=== PATIENT | female | born 1960 | race Caucasian/White ===

== ENCOUNTER 2018-06-29 10:09 | Day surgery (SDC) | payer OTHER, BC ==
[2018-06-27 12:27] VITALS: BMI 27.3
[2018-06-29] MEDS ORDERED: MIDAZOLAM HCL 2 MG/2 ML SINGLE DOSE VIAL ONE (11:56)
[2018-06-29] MEDS ORDERED: PROPOFOL 20 ML ONE (11:56)
[2018-06-29] MEDS ORDERED: GUM MASTIC/STORAX/MSAL/ALCOHOL 1 DRP DROPSBTL MC ONE (12:00)
[2018-06-29] MEDS ORDERED: BUPIVACAINE HCL/PF 2.5 MG/ML - 30 ML VIAL IJ ONE (12:00)
[2018-06-29] MEDS ORDERED: PROMETHAZINE HCL 25 MG/1 ML VIAL IVPUSH PRN (15:07)
[2018-06-29] MEDS ORDERED: ONDANSETRON 4 MG/2 ML VIAL IVPUSH PRN (15:07)
[2018-06-29] MEDS ORDERED: oxyCODONE HCL 5 MG TABLET PO PRN ×2 (15:07)
[2018-06-29 15:29] VITALS: BP 124/72; PULSE 68
[2018-06-29 15:50] VITALS: TEMP 97.8
--- NOTE | 2018-06-30 15:33 | OP ---
DATE OF OPERATION: 06/29/2018 PREOPERATIVE DIAGNOSIS: Right carpal tunnel syndrome. POSTOPERATIVE DIAGNOSIS: Right carpal tunnel syndrome. OPERATIVE PROCEDURE: Right endoscopic carpal tunnel release. ANESTHESIA: General. COMPLICATIONS: None. ESTIMATED BLOOD LOSS: Minimal. INDICATION FOR PROCEDURE: The patient is a 57-year-old female with the above findings indicated for operative treatment. Risks, benefits and alternatives were discussed with the patient at length and proper informed consent was obtained. PROCEDURE: After proper identification of the patient and correct operative site the patient was brought to the operating room and placed supine on the operating table. All bony prominences were well padded. Superficial landmarks were drawn on the skin well-padded tourniquet Esmarch bandage right upper extremity. The tourniquet was inflated to 250 mmHg. Transverse incision was made over the proximal wrist crease. This was ulnar to the palmaris longus tendon. Antebrachial fascia was divided and the carpal canal was entered. . The blade was then deployed and the ligament was divided. Under approach the distal 4 cm of the antebrachial fascia were also divided longitudinally. This provided complete release of the median nerve at the wrist. The wound was irrigated and repaired with 4-0 Monocryl suture. Steri-Strips, sterile dressing were placed. Patient was reversed from anesthesia and brought to the recovery room in stable condition. DANI ROGERS M.D. [id number]
== END 2018-06-29 15:50 | disposition home or self-care (01) ==
LOC: FASU 10:09
PROVIDERS: ATTEND Orthopaedic Surgery Hand Surgery
PROC: 01N54ZZ Release Median Nerve, Percutaneous Endoscopic Approach (ICD-10-PCS; principal; 2018-06-29 13:44)
DX: G56.01 Carpal tunnel syndrome, right upper limb (principal)
CPT/HCPCS: 94760

== ENCOUNTER 2018-07-27 07:48 | Day surgery (SDC) | payer OTHER, BC ==
[2018-07-19 12:13] VITALS: BMI 27.3
[2018-07-27] MEDS ORDERED: PROPOFOL 20 ML ONE (09:28)
[2018-07-27] MEDS ORDERED: MIDAZOLAM HCL 2 MG/2 ML SINGLE DOSE VIAL ONE (09:28)
[2018-07-27] MEDS ORDERED: LIDOCAINE HCL/PF 2% SDV 5ML VIAL ONE (09:49)
[2018-07-27] MEDS ORDERED: BUPIVACAINE HCL/PF 0.25% (2.5MG/ML) 10 ML VIAL IJ ONE (10:13)
[2018-07-27] MEDS ORDERED: ONDANSETRON 4 MG/2 ML VIAL IVPUSH PRN (10:35)
[2018-07-27] MEDS ORDERED: oxyCODONE HCL 5 MG TABLET PO PRN (10:35)
[2018-07-27] MEDS ORDERED: LACTATED RINGERS SOLUTION 1,000 ML IV SCH (10:45)
[2018-07-27 10:47] VITALS: TEMP 97.5
[2018-07-27 11:53] VITALS: BP 110/70; PULSE 69
--- NOTE | 2018-07-28 11:32 | OP ---
DATE OF OPERATION: 07/27/2018 PREOPERATIVE DIAGNOSIS: Right carpal tunnel syndrome. POSTOPERATIVE DIAGNOSIS: Right carpal tunnel syndrome. OPERATIVE PROCEDURE: Right endoscopic carpal tunnel release. SURGEON: Maico Rogers MD ANESTHESIA: General. COMPLICATIONS: None. ESTIMATED BLOOD LOSS: Minimal. INDICATION FOR PROCEDURE: The patient is a 57-year-old female with above findings indicated for operative treatment. Risks, benefits, and alternatives were discussed with patient at length. Proper informed consent was obtained. DESCRIPTION OF PROCEDURE: After proper identification of the patient and the correct operative site, patient was brought to the operating room and placed supine on the operating table. All bony prominences were well padded. General anesthesia was provided by the anesthesiologist. Right upper extremity was prepped and draped in usual sterile fashion. A well-padded tourniquet was placed over the sterile prep. Superficial landmarks were drawn on the skin. Esmarch bandage was used to exsanguinate right upper extremity. Tourniquet was inflated to 250 mmHg. A transverse incision was made over the proximal wrist crease. Incision was taken sharply through skin with blunt and sharp dissection through subcutaneous tissue. Antebrachial fascia was divided, and the carpal canal was entered with an elevator. The Hamate Finder dilators were then used to prepare the canal, and the MicroAire Endoscopic Carpal Tunnel Release System was then inserted to the distal edge of the transverse carpal ligament which was positively identified both palpably and visually. At all times throughout the procedure, excellent visualization was achieved and at no time was any soft tissue allowed to interpose between the undersurface of the transverse carpal ligament and the blade. The blade was then deployed, and the transverse carpal ligament was divided. Under direct mini-open approach, the distal 4 cm of the antebrachial fascia were also divided for a complete release of the median nerve of the wrist. Wound was irrigated and repaired with 4-0 Monocryl suture. Sterile dressings were applied. Patient was reversed from anesthesia and brought to the recovery room in stable condition. She tolerated the procedure well. MAICO ROGERS M.D. [id number]
== END 2018-07-27 11:54 | disposition home or self-care (01) ==
LOC: FASU 07:48
PROVIDERS: ATTEND Orthopaedic Surgery Hand Surgery
PROC: 01N54ZZ Release Median Nerve, Percutaneous Endoscopic Approach (ICD-10-PCS; principal; 2018-07-27 10:08)
DX: G56.01 Carpal tunnel syndrome, right upper limb (principal)
CPT/HCPCS: 94760